=== PATIENT | male | born 1995 | race Caucasian/White ===

== ENCOUNTER 2018-01-09 23:49 | Emergency (ER) | payer OTHER, SELFPAY ==
[2018-01-10 00:10] VITALS: BP 130/78; PULSE 67; RESP 16; O2SAT 99; BMI 21.0
--- NOTE | 2018-01-10 00:20 | ED.HEATRA ---
HPI - Head Injury General Chief complaint: Head Injury Stated complaint: hit head on airplane felt weightless/headache Time Seen by Provider: 01/10/18 00:20 Source: patient and family Mode of arrival: ambulatory Limitations: no limitations History of Present Illness HPI Narrative: Patient states he was working on an airplane when he attempted to stand up and bumped his head hard on overhead compartment. Patient states he did not lose consciousness but did feel a strange feeling a wait list miss after the impact. Patient denies any incoordination. No weakness in an arm or leg. No visual changes. No vomiting. Patient states it has been about 10 hr since the incident. Complaint: head injury Onset (ago): hour(s) ( Ten) Mechanism of Injury: work related injury Place: work Loss of Consciousness: no Location of injury: parietal ( superior) and other Severity: moderate Severity scale (1-10): 5 Quality: dull Radiation: none Other Injuries: none Associated symptoms: denies other symptoms Related Data Previous Rx's Medication Instructions Recorded omeprazole 40 mg PO QAM #14 cap 02/11/17 Review of Systems Review of Systems All systems reviewed & are unremarkable except as noted in HPI and below [facility] Medical History No significant active problems (Acute) Social History Smoking Status: Current every day smoker Exam Initial Vital Signs Initial Vital Signs: Vital Signs Pulse Rate 67 01/10/18 00:10 Respiratory Rate 16 01/10/18 00:10 Blood Pressure 130/78 H 01/10/18 00:10 Pulse Oximetry 99 01/10/18 00:10 Const General: cooperative and well developed Nutritional Appearance: well nourished Orientation: alert, awake, oriented x3 and not confused [facility] Head: normocephalic and scalp tenderness ( Superior parietal area in the midline.) Ears: external ears normal and TM's normal bilaterally Nose: external nose normal and No nasal discharge Face and sinus: face symmetric, no sinus tenderness and No dry mucous membranes Mouth: oral mucosae normal and moist mucous membranes Teeth and gingiva: dentition normal Eyes General: appearance normal, both eyes and all related structures Eyelids: eyelids normal Conjunctivae: conjunctivae normal Sclera: sclerae normal Pupils: PERRL EOM: EOM intact bilaterally Neck Neck: normal visual inspection, trachea midline, No lymphadenopathy, No midline deformity and No JVD Lymphatic: No lymphedema Resp Effort & Inspection: normal respiratory effort, able to speak in complete sentences, no respiratory distress and no use of accessory muscles Auscultation: clear to auscultation bilaterally, no rales, no rhonchi and no wheezes Cardio Rate: regular rate Rhythm: regular rhythm Heart Sounds: no click, no gallops, no murmurs and no rubs Pulses: normal peripheral pulses GI Inspection: non-distended Palpation: soft, no hepatosplenomegaly, No guarding, No pulsatile mass and No tender Auscultation: normal bowel sounds Back/Spine/Pelvis Back: No CVA tenderness Cervical Spine: cervical ROM normal and No pain with cervical ROM Thoracic/Lumbar Spine: thoracic and lumbar spine normal to inspection Skin General: no rashes or lesions noted, No jaundice and No petechiae Neuro General: alert, oriented x3, gait normal and no focal motor deficits Speech: speech normal Extrem General: full ROM, no clubbing, cyanosis or edema, no pedal edema and no calf tenderness Psych Appearance: well kempt Mental Status: mental status grossly normal Attitude: cooperative Thought Content: normal and suicidality Judgment: judgment good Course Hospital Course: Patient remained stable throughout his stay in the emergency department. Patient's head injury sounded fairly minor, and his symptoms were also minor. Additionally, a number of hours had passed since the incident, and I felt that patient was unlikely to have an intracranial hemorrhage. We discussed getting a CT, although I think this would be negative. Patient ultimately decided that he would prefer not to have a CT of the brain, but rather, to wait and see how he feels after couple of days. We have discussed the usual indications for return. Vital Signs - 8 hr 08/24/18 00:10 Pulse Rate 67 Respiratory Rate 16 Blood Pressure 130/78 H Pulse Oximetry 99 [facility] - Head Injury Medical Records Attestation: I reviewed the patient's medical records. [facility] Narrative Medical decision making narrative: I felt the patient's decision not to have a CT scan of the brain was reasonable, given the nature of his injury, his mild symptoms, and his lack of neurologic deficits or loss of consciousness. Patient understands the indications for return, as does his significant other. Discharge Plan Departure Patient Disposition: Home Clinical Impression: CHI (closed head injury) Discharge Date/Time: 01/10/18 01:32 Interventions: ED Discharge Assessment Last Done: 01/10/18 01:00 Instructions: DI for Concussion, DI for Closed Head Injury Prescriptions: No Action omeprazole 40 MG capsule,delayed release(DR/EC) 40 mg PO QAM Qty: 14 RF: 0 Referrals: [facility] [Provider Group] (As needed) Provider,Conversion [Non-Staff] -
--- NOTE | 2018-01-10 00:58 | ED_ITS ---
HPI - Head Injury General Chief complaint: Head Injury Stated complaint: hit head on airplane felt weightless/headache Time Seen by Provider: 01/10/18 00:20 Source: patient and family Mode of arrival: ambulatory Limitations: no limitations History of Present Illness HPI Narrative: Patient states he was working on an airplane when he attempted to stand up and bumped his head hard on overhead compartment. Patient states he did not lose consciousness but did feel a strange feeling a wait list miss after the impact. Patient denies any incoordination. No weakness in an arm or leg. No visual changes. No vomiting. Patient states it has been about 10 hr since the incident. Complaint: head injury Onset (ago): hour(s) ( Ten) Mechanism of Injury: work related injury Place: work Loss of Consciousness: no Location of injury: parietal ( superior) and other Severity: moderate Severity scale (1-10): 5 Quality: dull Radiation: none Other Injuries: none Associated symptoms: denies other symptoms Related Data Previous Rx's Medication Instructions Recorded omeprazole 40 mg PO QAM #14 cap 02/11/17 Review of Systems Review of Systems All systems reviewed & are unremarkable except as noted in HPI and below [facility] Medical History No significant active problems (Acute) Social History Smoking Status: Current every day smoker Exam Initial Vital Signs Initial Vital Signs: Vital Signs Pulse Rate 67 01/10/18 00:10 Respiratory Rate 16 01/10/18 00:10 Blood Pressure 130/78 H 01/10/18 00:10 Pulse Oximetry 99 01/10/18 00:10 Const General: cooperative and well developed Nutritional Appearance: well nourished Orientation: alert, awake, oriented x3 and not confused [facility] Head: normocephalic and scalp tenderness ( Superior parietal area in the midline.) Ears: external ears normal and TM's normal bilaterally Nose: external nose normal and No nasal discharge Face and sinus: face symmetric, no sinus tenderness and No dry mucous membranes Mouth: oral mucosae normal and moist mucous membranes Teeth and gingiva: dentition normal Eyes General: appearance normal, both eyes and all related structures Eyelids: eyelids normal Conjunctivae: conjunctivae normal Sclera: sclerae normal Pupils: PERRL EOM: EOM intact bilaterally Neck Neck: normal visual inspection, trachea midline, No lymphadenopathy, No midline deformity and No JVD Lymphatic: No lymphedema Resp Effort & Inspection: normal respiratory effort, able to speak in complete sentences, no respiratory distress and no use of accessory muscles Auscultation: clear to auscultation bilaterally, no rales, no rhonchi and no wheezes Cardio Rate: regular rate Rhythm: regular rhythm Heart Sounds: no click, no gallops, no murmurs and no rubs Pulses: normal peripheral pulses GI Inspection: non-distended Palpation: soft, no hepatosplenomegaly, No guarding, No pulsatile mass and No tender Auscultation: normal bowel sounds Back/Spine/Pelvis Back: No CVA tenderness Cervical Spine: cervical ROM normal and No pain with cervical ROM Thoracic/Lumbar Spine: thoracic and lumbar spine normal to inspection Skin General: no rashes or lesions noted, No jaundice and No petechiae Neuro General: alert, oriented x3, gait normal and no focal motor deficits Speech: speech normal Extrem General: full ROM, no clubbing, cyanosis or edema, no pedal edema and no calf tenderness Psych Appearance: well kempt Mental Status: mental status grossly normal Attitude: cooperative Thought Content: normal and suicidality Judgment: judgment good Course Hospital Course: Patient remained stable throughout his stay in the emergency department. Patient's head injury sounded fairly minor, and his symptoms were also minor. Additionally, a number of hours had passed since the incident, and I felt that patient was unlikely to have an intracranial hemorrhage. We discussed getting a CT, although I think this would be negative. Patient ultimately decided that he would prefer not to have a CT of the brain, but rather, to wait and see how he feels after couple of days. We have discussed the usual indications for return. Vital Signs - 8 hr 08/24/18 00:10 Pulse Rate 67 Respiratory Rate 16 Blood Pressure 130/78 H Pulse Oximetry 99 [facility] - Head Injury Medical Records Attestation: I reviewed the patient's medical records. [facility] Narrative Medical decision making narrative: I felt the patient's decision not to have a CT scan of the brain was reasonable, given the nature of his injury, his mild symptoms, and his lack of neurologic deficits or loss of consciousness. Patient understands the indications for return, as does his significant other. Discharge Plan Departure Patient Disposition: Home Clinical Impression: CHI (closed head injury) Discharge Date/Time: 01/10/18 01:32 Interventions: ED Discharge Assessment Last Done: 01/10/18 01:00 Instructions: DI for Concussion, DI for Closed Head Injury Prescriptions: No Action omeprazole 40 MG capsule,delayed release(DR/EC) 40 mg PO QAM Qty: 14 RF: 0 Referrals: [facility] [Provider Group] (As needed) Provider,Conversion [Non-Staff] -
== END 2018-01-10 01:32 | disposition home or self-care (01) ==
PROVIDERS: Emergency Provider Emergency Medicine
DX: S09.90XA Unspecified injury of head, initial encounter (principal); W22.8XXA Striking against or struck by other objects, initial encounter; Y99.0 Civilian activity done for income or pay
CPT/HCPCS: 99282

== ENCOUNTER 2019-06-19 17:35 | Emergency (ER) | payer OTHER, SELFPAY ==
[2019-06-19 18:22] VITALS: BP 120/71; PULSE 69; RESP 16; TEMP 36.9; O2SAT 100; BMI 21.4
--- NOTE | 2019-06-19 18:28 | DI.RAD.S_ITS ---
PROCEDURE: XR CHEST 1V INDICATIONS: chest pain TECHNIQUE: One view of the chest was acquired. COMPARISON: None. FINDINGS: Surgical changes and devices: None. Lungs and pleura: Lungs are clear. No pleural effusions or pneumothorax. Mediastinum: Mediastinal contours appear normal. Heart size is normal. Bones and chest wall: No suspicious bony lesions. Overlying soft tissues appear unremarkable. IMPRESSION: No acute cardiopulmonary abnormality. Dictated by: Jorge Kelly M.D. on 06/19/2019 at 19:07 Approved by: Jorge Kelly M.D. on 06/19/2019 at 19:08
[2019-06-19 18:56] LABS: Add Manual Diff / Slide Review NO; Basophils Absolute Auto 0 /uL (0-100); Basophils Percent Auto 0.5 % (0-2); Eosinophils Absolute Auto 0 /uL (0-450); Eosinophils Percent Auto 0.2 % (2-4); Hematocrit 42.6 % (41-53); Hemoglobin 14.6 g/dL (13.5-17.5); Lymphocytes Absolute Auto 2000 /uL (1100-4500); Lymphocytes Percent Auto 24.5 % (25-40); Mean Corpuscular HGB Conc 34.2 % (30-36); Mean Corpuscular Hemoglobin 30.5 PG (26-34); Monocytes Absolute Auto 300 /uL (0-900); Monocytes Percent Auto 3.7 % (3-14); Neutrophils Absolute Auto 5800 /uL (1500-7000); Neutrophils Percent Auto 71.1 % (50-75); Platelet Count 227 X10^3/uL (150-400); Red Blood Cell Count 4.79 X10^6/uL (4.5-5.9); Red Cell Distribution Width 13.3 % (11.6-14.8); White Blood Cell Count 8.2 X10^3/uL (4.5-11.0)
[2019-06-19 19:04] LABS: INR 1.5 (0.9-1.3); Prothrombin Time 17.6 SECONDS (10.1-12.7)
[2019-06-19 19:06] LABS: PTT Partial Thromboplastin Tim 36 SECONDS (26.4-36.2)
[2019-06-19 19:07] LABS: Alanine Aminotransferase 17 IU/L (<50); Albumin 5.2 g/dL (3.5-5.0); Albumin Globulin Ratio 1.7 (1.0-2.8); Alkaline Phosphatase 56 U/L (38-126); Aspartate Aminotransferase 21 IU/L (17-59); BUN Creatinine Ratio 22.5 (6-22); Bilirubin Total 0.6 mg/dL (0.2-1.3); Blood Urea Nitrogen 18 mg/dL (9-20); Calcium 9.9 mg/dL (8.4-10.2); Carbon Dioxide 29 mmol/L (22-32); Chloride 98 mmol/L (98-107); Creatine Kinase 74 U/L (55-170); Estimated Glomerular Filt Rate > 60.0 mL/min (>60); Glucose 95 mg/dL (70-100); HEMOLYSIS < 15 (0-50); Potassium 4.1 mmol/L (3.4-5.1); Sodium 139 mmol/L (137-145); Total Protein 8.2 g/dL (6.3-8.2)
[2019-06-19 19:19] LABS: Troponin I < 0.012 ng/mL (0.01-0.034)
[2019-06-19 20:23] VITALS: BP 133/79; PULSE 64; RESP 16; O2SAT 98
--- NOTE | 2019-06-19 20:32 | ED_ITS ---
HPI - Chest Pain General Chief Complaint: Chest Pain Stated Complaint: chest pain and left arm/ neck pain Time Seen by Provider: 06/19/19 20:30 Source: patient Mode of arrival: Family Vehicle Limitations: no limitations History of Present Illness HPI narrative: This is a 23-year-old male comes to the emergency department with complaint of chest pain on the left side, radiating to shoulder neck and sometimes causing headaches patient states it has been going on for about 2 and half days. He is also thigh T8, like he can't really get enough sleep, his appetite has been decreased. He has not had any fevers. He has not had any chills. He does feel cold intermittently. He feels shaky at times. He has not had any nasal congestion cold cough or upper respiratory symptoms. He has not any shortness of breath. He states that the chest pain is always present sort of in her creases in decreases but nothing seems to exacerbate it, movement deep inspiration do not make any difference. Patient has had occasional mild nausea. No vomiting. He has had some intermittent constipation. He has not had any urinary issues other than he feels like he was dehydrated but states he is urinating plenty. He denies any swelling in his lower extremities. No rashes or skin changes. Has a history of ulcers in his stomach internal hemorrhoids seen on scope. He has had a tonsillectomy. He is in the . 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 He had influenza in May but has felt sort of 15 to and just not well since then. He smokes less than half pack per day of tobacco, no alcohol, no illicit. He has a family history of a CABG in his maternal grandfather and an MN in his paternal grandfather and an uncle who had her surgery. Parents and siblings have no medical issues. Related Data Previous Rx's Medication Instructions Recorded omeprazole 40 mg PO QAM #14 cap 02/11/17 Review of Systems Review of Systems ROS Unobtainable: All systems reviewed & are unremarkable except as noted in HPI and below Patient History Medical History (Updated 06/19/19 @ 21:30 by Rosanna Jay DO) No significant active problems (Acute) Surgical History (Updated 06/19/19 @ 20:56 by Rosanna Jay DO) History of tonsillectomy (Acute) Social History Smoking Status: Current every day smoker Smoking Status: Current every day smoker tobacco type: cigarettes alcohol intake frequency: a few times a month Substance Use Type: does not use Exam Narrative Exam Narrative: GENERAL: Alert and oriented x three, thin, well-appearing male in mild distress HEENT: Head normocephalic, atraumatic, EOMI, pupils reactive, face symmetric, moist mucous membranes NECK: Supple, full range of motion CARDIOVASCULAR: Regular rate and rhythm without murmurs, rubs or gallops. No reproducible chest pain. RESPIRATORY: Breath sounds equal bilaterally, no wheezes rales or rhonchi. ABDOMEN: Soft, nontender. Normoactive bowel sounds all 4 quadrants. No guarding or rebound, rigidity, no mass : No CVA tenderness EXTREMITIES: Normal range of motion, no clubbing or edema in upper or lower extremities. Neurovascularly intact NEUROLOGICAL: Cranial nerves II through XII grossly intact. Moving all extremities SKIN: Warm, dry, no petechiae, no rashes or lesions. Initial Vital Signs Initial Vital Signs: Vital Signs Temperature 98.4 F 06/19/19 18:22 Pulse Rate 69 06/19/19 18:22 Respiratory Rate 16 06/19/19 18:22 Blood Pressure 120/71 06/19/19 18:22 Pulse Oximetry 100 06/19/19 18:22 Scores HEART Score Heart Score history: Slightly Suspicious Heart Score EKG: Normal Heart Score Age: < 45 years old Heart Score risk factors: No known risk factors Heart Score troponin: < or = to normal limit Heart Score Total: 0 PERC Score Age greater than or equal to 50 years: No Heart rate greater than or equal to 100 bpm: No Room Air O2 Sat less than 95%: No Unilateral leg swelling: No Recent trauma or surgery: No Hemoptysis: No Prior PE or DVT: No Hormone Use: No Total PERC Score: 0 Course Orders Ordered: ED Orders 06/19/19 18:28 XR chest 1V Stat EKG-12 Lead Stat 06/19/19 18:48 Complete Blood Count AUTO DIFF Stat Comprehensive Metabolic Panel Stat D Dimer Stat Lipase Stat Partial Thromboplastin Time Stat Prothrombin Time INR Stat Troponin & CK Cardiac Panel Stat Vital Signs Vital signs: Vital Signs - 8 hr 06/19/19 18:22 06/19/19 20:23 06/19/19 21:38 Temperature 98.4 F Pulse Rate 69 64 68 Respiratory Rate 16 16 18 Blood Pressure 120/71 110/68 Blood Pressure [Left Arm] 133/79 Pulse Oximetry 100 98 98 MDM - Chest Pain Lab Data Attestation: I reviewed the patient's lab results. Result diagrams: 06/19/19 18:48 06/19/19 18:48 Labs: Lab Results 06/19/19 06/19/19 06/19/19 Range/Units 18:48 18:48 18:48 WBC 8.2 (4.5-11.0) X10^3/uL RBC 4.79 (4.5-5.9) X10^6/uL Hgb 14.6 (13.5-17.5) g/dL Hct 42.6 (41-53) % MCV 89.0 (80-100) fL MCH 30.5 (26-34) PG MCHC 34.2 (30-36) % RDW 13.3 (11.6-14.8) % Plt Count 227 (150-400) X10^3/uL Neut % (Auto) 71.1 (50-75) % Lymph % (Auto) 24.5 L (25-40) % [place] % (Auto) 3.7 (3-14) % Eos % (Auto) 0.2 L (2-4) % Baso % (Auto) 0.5 (0-2) % Neut # (Auto) 5800 (4387-9253) /uL Lymph # (Auto) 2000 (3085-9756) /uL [place] # (Auto) 300 (0-900) /uL Eos # (Auto) 0 (0-450) /uL Baso # (Auto) 0 (0-100) /uL PT 17.6 H (10.1-12.7) SECONDS INR 1.5 H (0.9-1.3) APTT 36 (26.4-36.2) SECONDS D-Dimer (<230) ng/mL Sodium 139 (137-145) mmol/L Potassium 4.1 (3.4-5.1) mmol/L Chloride 98 (98-107) mmol/L Carbon Dioxide 29 (22-32) mmol/L BUN 18 (9-20) mg/dL Creatinine 0.80 (0.66-1.25) mg/dL Estimated GFR > 60.0 (>60) mL/min BUN/Creatinine Ratio 22.5 H (6-22) Glucose 95 (70-100) mg/dL Calcium 9.9 (8.4-10.2) mg/dL Total Bilirubin 0.6 (0.2-1.3) mg/dL AST 21 (17-59) IU/L ALT 17 (<50) IU/L Alkaline Phosphatase 56 (38-126) U/L Total Creatine Kinase 74 (55-170) U/L CK-MB (CK-2) TNP CK-MB (CK-2) Rel Index TNP Troponin I < 0.012 (0.01-0.034) ng/mL Total Protein 8.2 (6.3-8.2) g/dL Albumin 5.2 H (3.5-5.0) g/dL Globulin 3.0 (1.7-4.1) g/dL Albumin/Globulin Ratio 1.7 (1.0-2.8) Lipase (23-300) U/L 06/19/19 06/19/19 Range/Units 18:48 18:48 WBC (4.5-11.0) X10^3/uL RBC (4.5-5.9) X10^6/uL Hgb (13.5-17.5) g/dL Hct (41-53) % MCV (80-100) fL MCH (26-34) PG MCHC (30-36) % RDW (11.6-14.8) % Plt Count (150-400) X10^3/uL Neut % (Auto) (50-75) % Lymph % (Auto) (25-40) % [place] % (Auto) (3-14) % Eos % (Auto) (2-4) % Baso % (Auto) (0-2) % Neut # (Auto) (5062-0679) /uL Lymph # (Auto) (5059-0082) /uL [place] # (Auto) (0-900) /uL Eos # (Auto) (0-450) /uL Baso # (Auto) (0-100) /uL PT (10.1-12.7) SECONDS INR (0.9-1.3) APTT (26.4-36.2) SECONDS D-Dimer < 200 (<230) ng/mL Sodium (137-145) mmol/L Potassium (3.4-5.1) mmol/L Chloride (98-107) mmol/L Carbon Dioxide (22-32) mmol/L BUN (9-20) mg/dL Creatinine (0.66-1.25) mg/dL Estimated GFR (>60) mL/min BUN/Creatinine Ratio (6-22) Glucose (70-100) mg/dL Calcium (8.4-10.2) mg/dL Total Bilirubin (0.2-1.3) mg/dL AST (17-59) IU/L ALT (<50) IU/L Alkaline Phosphatase (38-126) U/L Total Creatine Kinase (55-170) U/L CK-MB (CK-2) CK-MB (CK-2) Rel Index Troponin I (0.01-0.034) ng/mL Total Protein (6.3-8.2) g/dL Albumin (3.5-5.0) g/dL Globulin (1.7-4.1) g/dL Albumin/Globulin Ratio (1.0-2.8) Lipase 90 (23-300) U/L Imaging Data Chest x-ray: Radiologist's Impression: [place] [address] XRay Report Signed Patient: Chun Kilpatrick [facility]#: [id number] : 1995Acct:[id number] Age/Sex: 23 / MDate of Service: 06/19/19 Loc: ED Accession Number: [id number] Procedure: XR chest 1V Ordering Provider: Marcellus Strong MD PROCEDURE: XR CHEST 1V INDICATIONS: chest pain TECHNIQUE: One view of the chest was acquired. COMPARISON: None. FINDINGS: Surgical changes and devices: None. Lungs and pleura: Lungs are clear. No pleural effusions or pneumothorax. Mediastinum: Mediastinal contours appear normal. Heart size is normal. Bones and chest wall: No suspicious bony lesions. Overlying soft tissues appear unremarkable. IMPRESSION: No acute cardiopulmonary abnormality. Dictated by: Jorge Kelly M.D. on 06/19/2019 at 19:07 Approved by: Jorge Kelly M.D. on 06/19/2019 at 19:08 ECG Data Attestation: I personally reviewed and interpreted this ECG as follows: Prior ECG tracings: not available for review Interpretation: Sinus rhythm, rate of 152, QRS of 93, qtc 378, No ST elevation or depression. MDM Narrative Medical decision making narrative: Patient comes in with several days of constant chest pain waxing and waning in intensity with negative troponing and EKG. Discussed potential causes, ddimer is negative and patient PERC score is 0. Patient has also felt fatigued and under the weather but without any defi nitive symptoms. Discussed plan for follow up and return precautions. Patient and significant other expressed understanding. Discharge Plan Departure Patient Disposition: Home Clinical Impression: Atypical chest pain Discharge Date/Time: 06/19/19 21:39 Instructions: DI for Atypical Chest Pain Activity Restrictions/Additional Instructions: Follow up with your primary care physician in the next week for recheck. Continue to hydrate regularly. Return to the ER for fevers greater 100.4 F, new worsening chest pain, passing out, new shortness of breath, lightheadedness, persistent vomiting, black or bloody stools, new abdominal pain, new swelling, rashes or other skin changes. Prescriptions: No Action omeprazole 40 MG capsule,delayed release(DR/EC) 40 mg PO QAM Qty: 14 RF: 0
[2019-06-19 20:53] LABS: Lipase 90 U/L (23-300)
[2019-06-19 21:12] LABS: D Dimer < 200 ng/mL (<230)
[2019-06-19 21:38] VITALS: BP 110/68; PULSE 68; RESP 18; O2SAT 98
== END 2019-06-19 21:39 | disposition home or self-care (01) ==
PROVIDERS: Emergency Medicine; Emergency Provider Emergency Medicine
DX: R07.89 Other chest pain (principal); M54.2 Cervicalgia
CPT/HCPCS: 36415; 71045; 80053; 82550; 83690; 84484; 85025; 85379; 85610; 85730; 93005; 99283; 99285

== ENCOUNTER → 2023-01-07 13:14 | Outpatient (CLI) | payer OTHER, SELFPAY ==
--- NOTE | 2023-01-07 | DI.MRI.S_ITS ---
PROCEDURE: MR HIP RT W CON INDICATIONS: PAIN IN RIGHT HIP TECHNIQUE: After the administration of 10 mL of dilute intra-articular Gadolinium contrast, coronal STIR of the bony pelvis; coronal and oblique axial T1 spin echo with fat saturation, axial T2 fast spin echo with fat saturation, sagittal T1 spin echo with and without fat saturation of the involved hip. COMPARISON: None. FINDINGS: Image quality: Excellent. Bones and joints: There is no marrow edema. No intraosseous lesions or fractures. No avascular necrosis of the femoral head. Prominence of superior anterior right femoral head neck junction with subtle subcortical T2 hyperintense signal is seen which can be seen associated with CAM type femoral acetabular impingement. The visualized lower lumbar spine appears normally aligned. The ligamental, neck, and labral plicae appear normal where visualized. Tendons and ligaments: The gluteus medius and minimus tendons appear intact, without associated muscle atrophy. The nearby proximal iliotibial band also appears intact. The iliopsoas tendon appears intact, without adjacent bursal fluid collections or evidence for impingement syndrome. The origin of the hamstring tendon is intact at the ischial tuberosity, as well as the associated sacrotuberous ligament. The straight and reflected heads of the rectus femoris muscle origin appear intact, as well as the conjoint tendon. The ligamentum teres appears intact where visualized. Labrum and cartilage: Very subtle contour irregularity and contrast extension in superior anterior labrum at 12 to 1 o'clock position is noted suggestive of subtle superior anterior right hip labral tear. Cartilage surface of the femoral head appears of normal thickness. No paralabral cysts. The alpha angle of the femur is within normal limits at less than 55 degrees. Soft tissues: Visualized muscles demonstrate normal bulk and internal signal. Quadratus femoris muscle demonstrates no internal edema to suggest ischiofemoral impingement. The proximal sciatic neurovascular bundle appears normal adjacent to the hamstring tendons. No free pelvic fluid. Bladder wall thickness is normal. Genitourinary structures and bowel loops appear normal where visualized. IMPRESSION: 1. Prominence of superior anterior right femoral head neck junction which can be seen associated with CAM type femoral acetabular impingement. No marrow edema. No fracture or dislocation. No suspicious bony lesions. 2. Suggestion of very subtle superior anterior right hip labral tear at 12 to 1 o'clock position. 3. No gross right hip muscle or tendon signal abnormalities. Dictated by: Patrick Neves M.D. on 01/07/2023 at 15:35 Approved by: Patrick Neves M.D. on 01/07/2023 at 15:40
--- NOTE | 2023-01-07 | DI.RAD.S_ITS ---
PROCEDURE: [place] HIP INJECTION MR/CT RT INDICATIONS: PAIN IN RIGHT HIP TECHNIQUE: The indications, alternatives, benefits, risks, and complications of the procedure were explained to the patient. Written informed consent was obtained and placed in the chart. The hip was examined fluoroscopically with the legs fixed in slight internal rotation, and a site for needle placement chosen for entry into the hip joint from an anterior approach. Care was taken to locate the common femoral artery and vein beforehand. The skin was prepped and draped in a sterile fashion, and 1% Lidocaine infiltrated from skin down to joint capsule. A spinal needle was inserted into the joint, and a small amount of iodinated contrast media injected to confirm intra-articular placement of the needle tip. This was followed by approximately 10 mL dilute solution of a gadolinium containing MR contrast agent. The needle was removed and a dressing was applied. The patient was given postprocedural instructions and sent to the MR suite for imaging. COMPARISON: [facility], , MR HIP RT W CON, 01/07/2023, 14:12. FINDINGS: A single fluoroscopic spot image demonstrates intra-articular location of injected iodinated contrast. IMPRESSION: Successful fluoroscopically guided administration of dilute Gadolinium solution into the hip joint for MR arthrogram. Dictated by: Dominik Borden M.D. on 01/07/2023 at 16:12 Approved by: Dominik Borden M.D. on 01/07/2023 at 16:13
[2023-01-07] MEDS: SODIUM CHLORIDE 0.9 % 20 ML VIAL IV (14:55)
== END ==
PROVIDERS: Referring Provider Student in an Organized Health Care Education/Training Program; Visit Provider Student in an Organized Health Care Education/Training Program
DX: M25.551 Pain in right hip (principal)
CPT/HCPCS: 27093; 73722; 77002